=== PATIENT | male | born 1980 | race Caucasian/White ===

== ENCOUNTER 2025-02-18 00:29 | Emergency (ER) | payer OTHER ==
[~2025-02-18] VITALS: Ht 167.6 cm; Wt 85.0 kg
[2025-02-18 00:32] VITALS: O2SAT 98
[2025-02-18 01:18] VITALS: TEMP 36.9
[2025-02-18] MEDS: SODIUM CHLORIDE 0.9% 1,000 ML IV ONE (01:21)
[2025-02-18] MEDS: KETOROLAC 15MG/ML VIAL IV ONE (01:22)
[2025-02-18] MEDS: ONDANSETRON HCL 4MG/2ML INJ IV ONE (01:22)
[2025-02-18 01:43] LABS: BASOPHILS % 0.7 % (0.0-2.0); EOSINOPHILS % 2.7 % (0.0-5.0); HEMATOCRIT. 36.3 % (42.0-52.0); HEMOGLOBIN. 12.4 g/dL (14.0-18.0); LYMPHOCYTES % 35.6 % (20.0-50.0); MEAN PLATELET VOLUME 8.0 fl (7.4-10.4); MONOCYTES % 9.5 % (2.0-8.0); NEUTROPHILS % 51.5 % (40.0-76.0); PLATELET 136 x1000/uL (130-400); RED BLOOD CELL COUNT 3.66 mill/uL (4.7-6.1); RED CELL DISTRIBUTION WIDTH 14.2 % (11.6-14.6)
[2025-02-18 01:46] LABS: CREATININE 0.8 mg/dL (0.6-1.3)
[2025-02-18 01:47] LABS: ETHANOL BLOOD < 10 mg/dL (<10); UREA NITROGEN BLOOD 8 mg/dL (9-23)
[2025-02-18 01:48] LABS: ASPARTATE AMINOTRANSFERASE 275 IU/L (<34); BILIRUBIN DIRECT 0.5 mg/dL (<=3.0); PROTEIN TOTAL 7.3 g/dL (6.0-8.3); TROPONIN I HIGH SENSITIVITY 6 ng/L (3.0-53)
[2025-02-18 01:49] LABS: BILIRUBIN TOTAL 1.7 mg/dL (0.1-1.0)
[2025-02-18 01:52] LABS: INR 1.0
[2025-02-18] MEDS: PANTOPRAZOLE SODIUM 40 MG/VIAL IV ONE (02:28)
[2025-02-18] MEDS: MAGNESIUM/ALUMINUM HYDROXIDE/SIMETHICONE 30ML UDC PO ONE (02:28)
[2025-02-18 04:20] VITALS: BP 129/80; PULSE 72; RESP 11; O2SAT 98
== END 2025-02-18 04:28 | disposition home or self-care (01) ==
LOC: ER 00:29
DX: K29.70 Gastritis, unspecified, without bleeding (principal); R07.89 Other chest pain; E78.00 Pure hypercholesterolemia, unspecified; Z86.73 Personal history of transient ischemic attack (TIA), and cerebral infarction without residual deficits; Z88.0 Allergy status to penicillin; Z79.899 Other long term (current) drug therapy
CPT/HCPCS: 80076; 80048; 80320; 83690; 83735; 85025; 85610; 85730; 86850; 86900; 86901; 84484; 36415; 71045; 74176; 93005; 96361; 96374; 96375; 99285; J1885; J2470; J7030; J2405; G0480